=== PATIENT | female | born 1975 | race Caucasian/White ===

== ENCOUNTER 2016-11-01 22:39 | Emergency (ER) | payer OTHER ==
[~2016-11-01 22:39] MED LIST: ROCURONIUM BROMIDE INJ 50 MG/5 ML VIAL IV ONE
[2016-11-01] MEDS ORDERED: ETOMIDATE INJ/PF 20 MG/10 ML SDV IV ONE (22:51)
[2016-11-01] MEDS ORDERED: PROPOFOL 100 ML IV ONE (22:52)
[2016-11-01] MEDS ORDERED: NORMAL SALINE 1000 ML 1,000 ML IV ONE ×2 (23:00→23:25)
[2016-11-01 23:06] LABS: ABSOLUTE BASOPHILS # (AUTO) 0.1 10^3/uL (0.0-0.2); ABSOLUTE EOSINOPHILS # (AUTO) 0.2 10^3/uL (0.0-0.6); ABSOLUTE LYMPHOCYTES (AUTO) 4.3 10^3/uL (0.5-4.7); ABSOLUTE MONOCYTES (AUTO) 0.7 10^3/uL (0.1-1.4); ABSOLUTE NEUT (AUTO) 9.3 10^3/uL (1.7-8.2); BASOPHILS % (AUTO) 0.4 % (0-2); EOSINOPHILS % (AUTO) 1.4 % (0-6); HEMATOCRIT 40.3 % (36.0-47.0); HEMOGLOBIN 13.8 g/dL (12.0-15.5); HGB HCT DIFFERENCE 1.1; LYMPHOCYTES % (AUTO) 29.9 % (13-45); MEAN CORPUSCULAR HEMOGLOBIN 30.8 pg (27.0-33.4); MEAN CORPUSCULAR HGB CONC 34.2 g/dL (32.0-36.0); MEAN CORPUSCULAR VOLUME 90 fl (80-97); MONOCYTES % (AUTO) 4.5 % (3-13); RED BLOOD COUNT 4.48 10^6/uL (3.72-5.28); RED CELL DISTRIBUTION WIDTH 12.8 % (11.5-14.0); SEGMENTED NEUTROPHILS % (AUTO) 63.8 % (42-78); WHITE BLOOD COUNT 14.5 10^3/uL (4.0-10.5)
--- NOTE | 2016-11-01 23:07 | ER Document Report ---
ED General - General Chief Complaint: Cardiac Arrest Stated Complaint: POST ARREST Mode of Arrival: Medic Information source: Emergency Med Personnel Notes: This is a 41-year-old female who presents via EMS postarrest. History is all per EMS. EMS was called out for unresponsive patient. Reportedly the patient was found unresponsive by her family. On EMS arrival she was apneic and pulseless. She was found to be in V. fib. She was shocked once with an AED and twice by EMS. This resulted in return of spontaneous circulation. The patient also responded well to 3 doses of Narcan. On arrival to the emergency department she is noted to be moaning, eyes open, no purposeful movements and some rigidity and shaking of extremities concerning for possible seizure. She is noted to have a gag reflex initially, and pupils are equal 2mm and sluggishly responsive to light bilaterally. TRAVEL OUTSIDE OF THE [place] IN LAST 30 DAYS: No - Related Data Allergies/Adverse Reactions: No Known Allergies Allergy (Verified 11/02/16 01:17) Past Medical History - General Information source: Relative Cannot obtain history due to: Intubated - Social History Smoking Status: Unknown if Ever Smoked Family History: Reviewed & Not Pertinent - Past Medical History Cardiac Medical History: Denies: Hx Coronary Artery Disease, Hx Heart Attack, Hx Hypertension Pulmonary Medical History: Denies: Hx Asthma, Hx Bronchitis, Hx COPD, Hx Pneumonia Neurological Medical History: Reports: Hx Migraine. Denies: Hx Cerebrovascular Accident, Hx Seizures Musculoskeltal Medical History: Reports Hx Arthritis - mild Past Surgical History: Reports: Hx Tonsillectomy - Immunizations Hx Diphtheria, Pertussis, Tetanus Vaccination: No Review of Systems - Review of Systems -: Yes ROS unobtainable due to patient's medical condition Physical Exam - Vital signs Vitals: BP 82/52 L 11/01/16 22:40 - General General appearance: Other - eyes open, moaning respirations, no purposeful movements, not following commands - HEENT Head: Normocephalic, Atraumatic Conjunctiva: Normal - Respiratory Breath sounds: Normal. No: Rales, Rhonchi, Wheezing - Cardiovascular Rhythm: Regular, Tachycardia Heart sounds: S1 appreciated, S2 appreciated Murmur: No - Abdominal Inspection: Normal Distension: No distension Bowel sounds: Normal Organomegaly: No organomegaly - Neurological Notes: opens eyes more to sternal rub, but pt does not follow any commands. Extremities clenched and pt appears to be shivering. No obvious seizure activity at this time - Skin Skin Temperature: Cool Skin Moisture: Dry Skin Color: Pale Course - Re-evaluation Re-evalutation: 11/01/16 23:11 Secondary to concerns of airway protection, decision made to RSI and pt intubated with 7.5 ETT with Etomidate and Rocuronium, placed on Propofol drip. Family denies prior history of seizure disorder. Uncertain drug use or narcotic use. Pt critically ill and will be sent to CT now that airway secure. 11/01/16 23:40 Discussed with ICU military technology specialist at [facility] Dr. Skinner who accepts pt in transfer. Transfer center to be whether check at this time for air transport. Dr. Skinner recommends to start cooling pt with ice packs to axilla and groin. Still awaiting head CT. 11/02/16 00:08 Further history obtained from , who states patient has no cardiac history. She has a history of RA. She does take flexeril. He is not aware of narcotics or drug use. Reportedly she complained to family this evening of not feeling well and had "heartburn". She took a shower, felt a little better, but shortly after was found unresponsive in her house. Bystander CPR initiated. Rescue squad initiated AED with one shock,, then EMS states Vfib on their arrival and 2 more shocks given with ROSC. Pateint also given 4mg Narcan with increase in her respiratory drive. This was all prior to ER arrival. Air transport not available secondary to weather. Ground ALS crew to be here within the hour 11/02/16 01:27 Transport crew here for transport. Patient has remained hemodynamically stable on the vent, sedated with propofol, with some purposeful movements noted. She is stable for transport. - Vital Signs Vital signs: Temp Pulse Resp BP Pulse Ox 96.2 F L 17 105/73 100 11/02/16 01:01 11/02/16 01:01 11/02/16 01:01 11/02/16 01:01 - Laboratory Result Diagrams: 11/01/16 22:43 11/01/16 22:43 Laboratory results interpreted by me: 11/01/16 11/01/16 11/01/16 22:43 22:43 22:43 WBC 14.5 H Absolute Neutrophils 9.3 H VBG pH VBG HCO3 Carbon Dioxide 17 L Creatinine 1.39 H Est GFR ( Amer) 50 L Est GFR (Non-Af Amer) 42 L Glucose 242 H AST 379 H ALT 529 H Creatine Kinase 166 H CK-MB (CK-2) 4.78 H Total Protein 5.7 L Urine Protein Urine Glucose (UA) Urine Ketones Urine Blood 11/01/16 11/02/16 22:43 00:16 WBC Absolute Neutrophils VBG pH 7.27 L VBG HCO3 16.7 L Carbon Dioxide Creatinine Est GFR ( Amer) Est GFR (Non-Af Amer) Glucose AST ALT Creatine Kinase CK-MB (CK-2) Total Protein Urine Protein 30 H Urine Glucose (UA) 150 H Urine Ketones TRACE H Urine Blood MODERATE H - Diagnostic Test Radiology reviewed: Reports reviewed - CXR: ETT at thoracic inlet, no obvious infiltrate CT Head: no acute process - EKG Interpretation by Me Additional EKG results interpreted by me: 11/02/16 00:30 EKG at 2250 demonstrates sinus tachycardia with a rate of 1:30. See no obvious ST elevation or depression. There is a wandering baseline. EKG at 2258 and initial sinus tachycardia with a rate of [address] elevation or depression. There is some nonspecific T-wave changes. Procedures - Intubation Orotracheal Airway evaluation: Normal anatomy Medications: Etomidate, Other - rocuronium Intubation method: Orotracheal Blade type: Emmanuel Blade size: 4 ETT size: 7.5 ETT secured at: Lips - 21 ETT secured at (cm): 21 Breath Sounds after Intubation: Equal End tidal CO2 confirmed: Yes Post Intubation Xray: Yes Intubation Complications: No complications Critical Care Note - Critical Care Note Total time excluding time spent on procedures (mins): 50 - minutes of critical care time spent in direct contact evaluating and reevaluating the patient, treating symptoms, reviewing labs and studies and speaking with family and consultants excluding any procedures Discharge - Discharge Clinical Impression: Cardiac arrest, Signs of return of spontaneous circulation, Elevated liver enzymes Condition: Critical Disposition: [facility]
[2016-11-01 23:09] LABS: PROTHROMBIN TIME 14.4 SEC (11.4-15.4)
[2016-11-01 23:10] LABS: PARTIAL THROMBOPLASTIN TIME 30.8 SEC (23.5-35.8)
[2016-11-01 23:17] LABS: ALANINE AMINOTRANSFERASE 529 U/L (9-52); ALBUMIN 3.6 g/dL (3.5-5.0); ALKALINE PHOSPHATASE 58 U/L (38-126); ANION GAP 18 (5-19); ASPARTATE AMINO TRANSFERASE 379 U/L (14-36); BILIRUBIN,DIRECT 0.3 mg/dL (0.0-0.4); BILIRUBIN,TOTAL 0.4 mg/dL (0.2-1.3); BLOOD UREA NITROGEN 13 mg/dL (7-20); CALCIUM 8.8 mg/dL (8.4-10.2); CARBON DIOXIDE 17 mmol/L (22-30); CHLORIDE 105 mmol/L (98-107); CREATINE KINASE 166 U/L (30-135); CREATININE RESULT 1.39 mg/dL (0.52-1.25); GLUCOSE 242 mg/dL (75-110); POTASSIUM 3.7 mmol/L (3.6-5.0); SODIUM 139.9 mmol/L (137-145); TOTAL PROTEIN 5.7 g/dL (6.3-8.2)
[2016-11-01 23:22] LABS: ALCOHOL < 10 mg/dL (NONE DETECTED)
[2016-11-01 23:28] LABS: CREATINE KINASE MB 4.78 ng/mL (<4.55)
[2016-11-01 23:33] LABS: TROPONIN I 0.053 ng/mL
[2016-11-01 23:34] LABS: VENOUS BLOOD BASE EXCESS -9.3 mmol/L; VENOUS BLOOD HCO3 16.7 mmol/L (20-32); VENOUS BLOOD PCO2 36.9 mmHg (35-63); VENOUS BLOOD PH 7.27 (7.30-7.42)
[2016-11-01] MEDS ORDERED: MIDAZOLAM 2 MG/2 ML INJ ONE (23:55)
[2016-11-02 00:30] LABS: APPEARANCE,URINE CLEAR; BILIRUBIN,URINE NEGATIVE (NEGATIVE); GLUCOSE, URINE 150 mg/dL (NEGATIVE); KETONES,URINE TRACE mg/dL (NEGATIVE); LEUKOCYTE ESTERASE,URINE NEGATIVE (NEGATIVE); NITRITE,URINE NEGATIVE (NEGATIVE); PROTEIN,URINE 30 mg/dL (NEGATIVE); URINE SPECIFIC GRAVITY 1.009; UROBILINOGEN,URINE NEGATIVE mg/dL (<2.0)
[2016-11-02 00:42] LABS: URINE BARBITURATES SCREEN NEGATIVE; URINE METHADONE SCREEN NEGATIVE; URINE OPIATES LOW NEGATIVE; URINE PHENCYCLIDINE SCREEN NEGATIVE
[2016-11-02] MEDS ORDERED: ASPIRIN 300 MG SUPP, RECTAL PR ONE (00:44)
[2016-11-02] MEDS ORDERED: ENOXAPARIN SODIUM INJ 80 MG/0.8 ML DISP.SYRIN SUBCUT SCH (00:45)
[2016-11-02 01:03] VITALS: BP 105/73
[2016-11-02] MEDS ORDERED: PROPOFOL 100 ML IV ONE (01:14)
[2016-11-02] MEDS ORDERED: ENOXAPARIN SODIUM INJ 80 MG/0.8 ML DISP.SYRIN SUBCUT ONE (01:30)
--- NOTE | 2016-11-02 08:14 | EKG REPORT ---
SEVERITY:- ABNORMAL ECG - SINUS TACHYCARDIA BORDERLINE INFERIOR Q WAVES NONSPECIFIC REPOL ABNORMALITY, DIFFUSE LEADS : Confirmed by: Jaxson Coffey MD 02-Nov-2016 08:13:51
--- NOTE | 2016-11-02 08:15 | EKG REPORT ---
SEVERITY:- ABNORMAL ECG - SINUS TACHYCARDIA LATERAL INFARCT, AGE INDETERMINATE BORDERLINE PROLONGED QT INTERVAL : Confirmed by: Jaxson Coffey MD 02-Nov-2016 08:14:53
--- NOTE | 2016-11-02 08:15 | EKG REPORT ---
SEVERITY:- ABNORMAL ECG - SINUS TACHYCARDIA CONSIDER ANTEROLATERAL INFARCT BORDERLINE T ABNORMALITIES, LATERAL LEADS : Confirmed by: Jaxson Coffey MD 02-Nov-2016 08:15:04
--- NOTE | 2016-11-02 08:15 | EKG REPORT ---
SEVERITY:- ABNORMAL ECG - ABNORMAL T, CONSIDER ISCHEMIA, LATERAL LEADS PROLONGED QT INTERVAL SINUS RHYTHM : Confirmed by: Jaxson Coffey MD 02-Nov-2016 08:14:32
--- NOTE | 2016-11-02 08:17 | EKG REPORT ---
SEVERITY:- DEFECTIVE ECG - SEVERE BASELINE DISTORTION, DEFECTIVE EKG, NO INTERPRETATION : Confirmed by: Jaxson Coffey MD 02-Nov-2016 08:16:19
== END 2016-11-02 01:25 | disposition short-term general hospital (02) ==
LOC: ER 22:39
PROC: 0BH17EZ Insertion of Endotracheal Airway into Trachea, Via Natural or Artificial Opening (ICD-10-PCS; principal; 2016-11-01)
DX: I46.9 Cardiac arrest, cause unspecified (principal); R74.8 Abnormal levels of other serum enzymes
CPT/HCPCS: 31500; 93005 ×2; 99291; 96372; 96360; 51702; 36415; 82553; 80307 ×2; 82550; 83735; 85025; 85610; 85730; 81025; 80053; 81001; 84484; 82803; 71010; 70450; 93010 ×2; J2250; J3490 ×3; J2704; J7030; J1650

== ENCOUNTER 2016-12-24 15:54 | Emergency (ER) | payer OTHER ==
[2016-12-24] MEDS ORDERED: ASPIRIN 81 MG TABLET, CHEWABLE PO ONE (16:48)
--- NOTE | 2016-12-24 17:08 | RADIOLOGY REPORT (SQ) ---
EXAM DESCRIPTION: CHEST SINGLE VIEW COMPLETED DATE/TIME: 12/24/2016 4:56 pm REASON FOR STUDY: bed 13 cp COMPARISON: 04/27/2016 EXAM PARAMETERS: NUMBER OF VIEWS: One view. TECHNIQUE: Single frontal radiographic view of the chest acquired. RADIATION DOSE: NA LIMITATIONS: None. FINDINGS: LUNGS AND PLEURA: No opacities, masses or pneumothorax. No pleural effusion. MEDIASTINUM AND HILAR STRUCTURES: No masses. Contour normal. HEART AND VASCULAR STRUCTURES: Heart normal in size. Normal vasculature. BONES: No acute findings. HARDWARE: None in the chest. OTHER: No other significant finding. IMPRESSION: NO ACUTE RADIOGRAPHIC FINDING IN THE CHEST. TECHNICAL DOCUMENTATION: JOB ID: [id number]
[2016-12-24 17:44] LABS: ABSOLUTE BASOPHILS # (AUTO) 0.1 10^3/uL (0.0-0.2); ABSOLUTE EOSINOPHILS # (AUTO) 0.2 10^3/uL (0.0-0.6); ABSOLUTE LYMPHOCYTES (AUTO) 1.6 10^3/uL (0.5-4.7); ABSOLUTE MONOCYTES (AUTO) 0.4 10^3/uL (0.1-1.4); ABSOLUTE NEUT (AUTO) 4.8 10^3/uL (1.7-8.2); EOSINOPHILS % (AUTO) 2.3 % (0-6); HEMATOCRIT 40.8 % (36.0-47.0); HEMOGLOBIN 13.7 g/dL (12.0-15.5); HGB HCT DIFFERENCE 0.3; LYMPHOCYTES % (AUTO) 22.8 % (13-45); MEAN CORPUSCULAR HEMOGLOBIN 30.6 pg (27.0-33.4); MEAN CORPUSCULAR HGB CONC 33.6 g/dL (32.0-36.0); MEAN CORPUSCULAR VOLUME 91 fl (80-97); MONOCYTES % (AUTO) 5.3 % (3-13); RED BLOOD COUNT 4.48 10^6/uL (3.72-5.28); RED CELL DISTRIBUTION WIDTH 13.2 % (11.5-14.0); SEGMENTED NEUTROPHILS % (AUTO) 68.6 % (42-78); WHITE BLOOD COUNT 7.1 10^3/uL (4.0-10.5)
[2016-12-24 18:12] LABS: ALANINE AMINOTRANSFERASE 28 U/L (9-52); ALBUMIN 4.2 g/dL (3.5-5.0); ALKALINE PHOSPHATASE 80 U/L (38-126); ANION GAP 12 (5-19); ASPARTATE AMINO TRANSFERASE 35 U/L (14-36); BILIRUBIN,DIRECT 0.3 mg/dL (0.0-0.4); BILIRUBIN,TOTAL 0.5 mg/dL (0.2-1.3); BLOOD UREA NITROGEN 8 mg/dL (7-20); CALCIUM 9.7 mg/dL (8.4-10.2); CARBON DIOXIDE 24 mmol/L (22-30); CHLORIDE 106 mmol/L (98-107); CREATINE KINASE 33 U/L (30-135); CREATININE RESULT 0.69 mg/dL (0.52-1.25); GLUCOSE 87 mg/dL (75-110); POTASSIUM 3.7 mmol/L (3.6-5.0)
[2016-12-24 18:22] LABS: CREATINE KINASE MB 0.22 ng/mL (<4.55)
--- NOTE | 2016-12-24 18:25 | ER Document Report ---
ED Cardiac - General Mode of Arrival: Ambulatory Information source: Patient TRAVEL OUTSIDE OF THE [place] IN LAST 30 DAYS: No - HPI Patient complains to provider of: Chest pain, Shortness of breath Chest pain radiation location: Left arm, Left shoulder, Right arm, Right shoulder Associated symptoms: Other - see notes above <AMARI POLK - Last Filed: 12/24/16 22:53> <SU VALADEZ - Last Filed: 12/24/16 23:31> - General Chief Complaint: Chest Pain Stated Complaint: CHEST PAIN Time Seen by Provider: 12/24/16 17:01 Notes: 41-year-old female with history of sudden cardiac arrest and a negative heart catheterization in October 2016 presents to the ED complaining of chest pain started at 0630 this morning. Patient reports that she has a defibrillator ( [employer] ICD) which transmits information to vitamins. During the onset of the pain patient was transmitting information from a defibrillator. Patient reports that her pain worsened after transmission, but did not transmit any more information. Patient reports that her pain started in her chest and radiated to her arms and shoulders. She also began experiencing nausea and shortness of breath. Patient is currently on aspirin, Lisinopril, Lipitor, and Lopressor. (AMARI POLK) - Related Data Allergies/Adverse Reactions: No Known Allergies Allergy (Verified 12/24/16 16:23) Past Medical History - General Information source: Patient - Social History Smoking Status: Never Smoker Chew tobacco use (# tins/day): Yes Frequency of alcohol use: None Drug Abuse: None Family History: Reviewed & Not Pertinent Patient has suicidal ideation: No Patient has homicidal ideation: No Neurological Medical History: Reports: Hx Migraine Musculoskeltal Medical History: Reports Hx Arthritis - mild Past Surgical History: Reports: Hx Hysterectomy, Hx Orthopedic Surgery - ankle, Hx Tonsillectomy - Immunizations Hx Diphtheria, Pertussis, Tetanus Vaccination: No <AMARI POLK - Last Filed: 12/24/16 22:53> Review of Systems - Review of Systems Constitutional: No symptoms reported EENT: No symptoms reported Cardiovascular: See HPI, Chest pain - Which radiates to the bilateral arms and shoulders Respiratory: See HPI, Short of breath Gastrointestinal: See HPI, Nausea Genitourinary: No symptoms reported Female Genitourinary: No symptoms reported Musculoskeletal: No symptoms reported Skin: No symptoms reported Hematologic/Lymphatic: No symptoms reported Neurological/Psychological: No symptoms reported -: Yes All other systems reviewed and negative <AMARI POLK - Last Filed: 12/24/16 22:53> Physical Exam - Vital signs Interpretation: Normal - General General appearance: Appears well, Alert - HEENT Head: Normocephalic, Atraumatic Eyes: Normal Pupils: PERRL - Respiratory Respiratory status: No respiratory distress Chest status: Nontender Breath sounds: Normal Chest palpation: Normal - Cardiovascular Rhythm: Regular Heart sounds: Normal auscultation Murmur: No - Abdominal Inspection: Normal Distension: No distension Bowel sounds: Normal Tenderness: Nontender Organomegaly: No organomegaly - Back Back: Normal, Nontender - Extremities General upper extremity: Normal inspection, Nontender, Normal color, Normal ROM , Normal temperature General lower extremity: Normal inspection, Nontender, Normal color, Normal ROM , Normal temperature, Normal weight bearing. No: Val's sign - Neurological Neuro grossly intact: Yes Cognition: Normal Orientation: AAOx4 [place] Coma Scale Eye Opening: Spontaneous [place] Coma Scale Verbal: Oriented Cristofer Coma Scale Motor: Obeys Commands [place] Coma Scale Total: 15 Speech: Normal Motor strength normal: LUE, RUE, LLE, RLE Sensory: Normal - Psychological Associated symptoms: Normal affect, Normal mood - Skin Skin Temperature: Warm Skin Moisture: Dry Skin Color: Normal <SU VALADEZ - Last Filed: 12/24/16 23:31> - Vital signs Vitals: Temp Pulse Resp BP Pulse Ox 98.3 F 71 20 128/78 H 100 12/24/16 16:22 12/24/16 16:22 12/24/16 16:22 12/24/16 16:22 12/24/16 16:22 Course - Laboratory Result Diagrams: 12/24/16 17:30 12/24/16 17:30 - Consults Dr. Hinton Time consulted: 19:43 <AMARI POLK - Last Filed: 12/24/16 22:53> - Laboratory Result Diagrams: 12/24/16 17:30 12/24/16 17:30 - Diagnostic Test Radiology reviewed: Reports reviewed - EKG Interpretation by [facility] EKG shows normal: Sinus rhythm Rate: Normal Rhythm: NSR <SU VALADEZ Last Filed: 12/24/16 23:31> - Re-evaluation Re-evalutation: 12/24/16 20:27 Patient is a 41-year-old female who comes in complaining of chest pain. Patient has a history of cardiac arrest in October with AICD placement. Patient with normal blood work and negative troponin. Discussed with cardiology [place]. Patient had a clean cath in October. No evidence for coronary artery disease. Discussed with [employer] [facility] who states that the patient did not have syncope or firing of defibrillator, there would be nothing to interrogate at this time. Patient denies any symptoms. 12/24/16 23:30 Patient is feeling much better at this time. No further chest pain. Troponin negative 2. No acute findings on EKG. Patient does have a very low TSH. She is instructed to follow-up with her doctor regarding this hyperthyroidism which is apparently new. Otherwise stable for discharge. (SU VALADEZ) - Vital Signs Vital signs: Temp Pulse Resp BP Pulse Ox 98.2 F 70 17 104/57 L 100 12/24/16 23:23 12/24/16 23:23 12/24/16 19:01 12/24/16 23:23 12/24/16 23:23 - Laboratory Laboratory results interpreted by me: 12/24/16 17:30 TSH 0.03 L - Consults Dr. Hinton Reason for consultation: 12/24/16 19:43 Patient was discussed with Dr. Hinton and states that the patient had a clean catherization in October 2016. (AMARI POLK) Discharge <AMARI POLK - Last Filed: 12/24/16 22:53> <SU VALADEZ - Last Filed: 12/24/16 23:31> - Discharge Clinical Impression: Atypical chest pain, Hyperthyroidism Condition: Stable Disposition: HOME, SELF-CARE Instructions: Chest Pain of Unclear Cause ([facility]), Hyperthyroidism ([facility]) Additional Instructions: Please follow-up with your doctor regarding your chest pain. Referrals: HORACIO SETH MD [Primary Care Provider] - Follow up as needed Scribe Attestation: 12/24/16 23:31 I personally performed the services described in the documentation, reviewed and edited the documentation which was dictated to the scribe in my presence, and it accurately records my words and actions. (SU VALADEZ) Scribe Documentation - Scribe Written by Tiesha:: Tiesha Caruso, [id number] acting as scribe for :: Radha <AMARI POLK - Last Filed: 12/24/16 22:53>
[2016-12-24 18:26] LABS: TROPONIN I < 0.012 ng/mL
--- NOTE | 2016-12-24 18:55 | EKG REPORT ---
SEVERITY:- ABNORMAL ECG - SINUS RHYTHM NONSPECIFIC T ABNORMALITIES, DIFFUSE LEADS : Confirmed by: Sujata Garcia 24-Dec-2016 18:55:04
[2016-12-24 23:28] VITALS: BP 104/57
== END 2016-12-24 23:29 | disposition home or self-care (01) ==
LOC: ER 15:54
DX: R07.89 Other chest pain (principal); E05.90 Thyrotoxicosis, unspecified without thyrotoxic crisis or storm; R06.02 Shortness of breath; R11.0 Nausea; Z86.74 Personal history of sudden cardiac arrest; Z95.810 Presence of automatic (implantable) cardiac defibrillator; Z79.82 Long term (current) use of aspirin; Z79.899 Other long term (current) drug therapy; Z88.8 Allergy status to other drugs, medicaments and biological substances; Z76.0 Encounter for issue of repeat prescription
CPT/HCPCS: 36415; 71010; 80053; 82550; 82553; 84443; 84484; 85025; 85379; 93005; 93010; 99285

== ENCOUNTER → 2017-02-21 | Outpatient (CLI) | payer OTHER ==
--- NOTE | 2017-02-21 13:38 | WOMENS IMAGING REPORT ---
EXAM DESCRIPTION: U/S THYROID/ST TIS HEAD NECK COMPLETED DATE/TIME: 02/21/2017 8:17 am REASON FOR STUDY: THYROTOXICOSIS E05.90 THYROTOXICOSIS, UNSP WITHOUT THYROTOXIC CRISIS OR STO COMPARISON: None. TECHNIQUE: Dynamic and static balderas-scale images acquired of the thyroid gland. Selected additional c olor/power Doppler images recorded. All images stored to PACS. LIMITATIONS: None. FINDINGS: Thyroid gland is normal size but diffusely increased in echogenicity, with increased color flow, question thyroiditis. Right lobe 5.2 x 2.1 x 2 cm in size, left lobe 5.7 x 1.9 x 1.8 cm in size. Isthmus 5 mm in thickness . No focal thyroid nodules or cysts. IMPRESSION: Increased echogenicity and color flow diffusely throughout the thyroid gland, question t hyroiditis. No focal cysts or masses. TECHNICAL DOCUMENTATION: JOB ID: [id number] [employer]- All Rights Reserved
== END ==
LOC: WI 07:43
PROVIDERS: ATTEND Nurse Practitioner
DX: E05.90 Thyrotoxicosis, unspecified without thyrotoxic crisis or storm (principal)
CPT/HCPCS: 76536

== ENCOUNTER 2017-07-10 10:51 | Emergency (ER) | payer OTHER ==
[2017-07-10] MEDS ORDERED: CYCLOBENZAPRINE HCL 10 MG TABLET PO ONE (11:31)
[2017-07-10] MEDS ORDERED: NAPROXEN 250 MG TABLET PO ONE (11:31)
[2017-07-10] MEDS ORDERED: OXYCODONE-ACETAMINOPHEN 5-325 MG TABLET PO ONE (11:31)
--- NOTE | 2017-07-10 11:35 | ER Document Report ---
ED General - General Chief Complaint: Jaw Pain Stated Complaint: RIGHT SIDE PAIN Time Seen by Provider: 07/10/17 11:19 Mode of Arrival: Ambulatory Information source: Patient, [facility] Records Notes: This 42-year-old female patient reports waking up this morning with severe pain in her right scapular back region, and now feeling some pain in the left neck and jaw. The pain is made worse with movement. She does not recall any heavy lifting straining or other incident in the last week or so that could have precipitated this. Her history is significant for a sudden arrhythmia 11/01/2016 where she was resuscitated in the field. She subsequently went to [facility] where a cardiac catheterization was normal and an ICD was placed. She was seen again on 12/24/2016 with chest pain, but the workup was negative other than a low TSH and nothing ever came of that visit. She has a history of thyroiditis with hyperthyroidism. She reports her last thyroid function testing in March was normal. She reports she did take a Zanaflex once in the last 1-2 weeks. TRAVEL OUTSIDE OF THE [place] IN LAST 30 DAYS: No - Related Data Allergies/Adverse Reactions: No Known Allergies Allergy (Verified 07/10/17 10:55) Past Medical History - General Information source: Patient, [facility] Records - Social History Smoking Status: Never Smoker Cigarette use (# per day): No Chew tobacco use (# tins/day): No Smoking Education Provided: No Frequency of alcohol use: None Drug Abuse: None Occupation: Property management for a [employer] Lives with: Family Family History: Reviewed & Not Pertinent Patient has suicidal ideation: No Patient has homicidal ideation: No - Past Medical History Cardiac Medical History: Reports: Other - Sudden or arrhythmia on November 01, 2016 Denies: Hx Coronary Artery Disease Pulmonary Medical History: Reports: None EENT Medical History: Reports: None Neurological Medical History: Reports: Hx Migraine Endocrine Medical History: Reports: Hx Hyperthyroidism, Other - Thyroiditis Renal/ Medical History: Reports: None GI Medical History: Reports: None Musculoskeltal Medical History: Reports Hx Arthritis - mild Skin Medical History: Reports None Psychiatric Medical History: Reports: None Past Surgical History: Reports: Hx Hysterectomy, Hx Orthopedic Surgery - ankle, Hx Tonsillectomy - Immunizations Hx Diphtheria, Pertussis, Tetanus Vaccination: No Review of Systems - Review of Systems Constitutional: No symptoms reported EENT: No symptoms reported Cardiovascular: No symptoms reported Respiratory: No symptoms reported Gastrointestinal: No symptoms reported Genitourinary: No symptoms reported Female Genitourinary: No symptoms reported, Last menstrual period - Hysterectomy in 2014 Musculoskeletal: See HPI Skin: No symptoms reported Hematologic/Lymphatic: No symptoms reported Neurological/Psychological: No symptoms reported Physical Exam - Vital signs Vitals: Temp Pulse Resp BP Pulse Ox 98.7 F 66 18 119/58 L 100 07/10/17 11:07 07/10/17 11:07 07/10/17 11:07 07/10/17 11:07 07/10/17 11:07 Interpretation: Normal - General General appearance: Appears well, Alert In distress: Mild - Patient tends to sit holding her head, upper chest and back still due to pain with movement. - HEENT Head: Normocephalic, Atraumatic Eyes: Normal Pupils: PERRL Neck: Supple, Other - Very tender to palpate the left posterior cervical muscles going up toward the jaw and down toward the shoulder through the trapezius muscle. - Respiratory Respiratory status: No respiratory distress Breath sounds: Normal - Cardiovascular Rhythm: Regular Heart sounds: Normal auscultation Murmur: No - Abdominal Inspection: Normal - Back Back: Tender - Tenderness to the right scapular muscles. Tenderness to the left trapezius muscles. - Extremities General upper extremity: Other - The right medial and inferior scapular muscle regions are very tender to palpate. There is tenderness in rotating the scapula and lifting and using the right arm and shoulder. General lower extremity: Normal inspection - Neurological Neuro grossly intact: Yes - Psychological Associated symptoms: Normal affect, Normal mood - Skin Skin Temperature: Warm Skin Moisture: Dry Skin Color: Normal Course - Re-evaluation Re-evalutation: 07/10/17 13:03 Lab work is unremarkable and copies of lab work were provided to the patient to give to her primary care provider - Vital Signs Vital signs: Temp Pulse Resp BP Pulse Ox 98.7 F 66 18 119/58 L 100 07/10/17 11:07 07/10/17 11:07 07/10/17 11:07 07/10/17 11:07 07/10/17 11:07 - Laboratory Result Diagrams: 07/10/17 11:40 07/10/17 11:40 Laboratory results interpreted by me: 07/10/17 11:40 Calcium 10.4 H Discharge - Discharge Clinical Impression: Muscle strain of right scapular region Qualifiers: Encounter type: initial encounter Qualified Code(s): S46.911A - Strain of unspecified muscle, fascia and tendon at shoulder and upper arm level, right arm , initial encounter Strain of left trapezius muscle Qualifiers: Encounter type: initial encounter Qualified Code(s): S46.812A - Strain of other muscles, fascia and tendons at shoulder and upper arm level, left arm, initial encounter Condition: Stable Disposition: HOME, SELF-CARE Additional Instructions: Muscle Strain: You have strained the right scapular muscles and left trapezius muscles. This often occurs with strenuous exertion, or during an injury that suddenly stretches the muscle. You often will not feel the straining of the muscles at the time they occur, but will develope pain several days later. The seriousness of a strain varies. Some strains heal within days, others cause problems for months. X-rays cannot show a muscle strain. X-rays are taken only if symptoms suggest that a fracture could be present. The usual treatment of an older muscle strain is rest and moist heat. Sometimes, a sling or soft collar may be necessary to rest the muscle. The muscle can be used again once pain subsides. Severe strains require a special exercise and stretching program to prevent permanent stiffness and disability. Your doctor will advise you if this will be necessary. Call the doctor immediately if pain or swelling becomes severe, or if numbness or discoloration develop. //////////////////////////////////////////////////////////////////////////////// //////////////////////////////////////////////////////////////////////////////// //////////////// Take medications as prescribed. Take Motrin 600 mg every 8 hours or 2 Aleve every 12 hours for anti- inflammatory effect and additional pain relief. Follow-up with your primary care provider if not improving. It may take several days for the involved areas to stop hurting. RETURN TO THE EMERGENCY ROOM IF ANY NEW OR WORSENING SYMPTOMS. Prescriptions: Cyclobenzaprine HCl [Flexeril 5 mg Tablet] 5 mg PO TID PRN #15 tablet PRN Reason: Oxycodone HCl/Acetaminophen [Percocet 5-325 mg Tablet] 1 tab PO ASDIR PRN #15 tablet PRN Reason: Forms: Return to Work
[2017-07-10 12:08] LABS: ABSOLUTE BASOPHILS # (AUTO) 0.1 10^3/uL (0.0-0.2); ABSOLUTE EOSINOPHILS # (AUTO) 0.1 10^3/uL (0.0-0.6); ABSOLUTE LYMPHOCYTES (AUTO) 1.4 10^3/uL (0.5-4.7); ABSOLUTE MONOCYTES (AUTO) 0.4 10^3/uL (0.1-1.4); ABSOLUTE NEUT (AUTO) 4.9 10^3/uL (1.7-8.2); BASOPHILS % (AUTO) 0.9 % (0-2); EOSINOPHILS % (AUTO) 1.5 % (0-6); HEMATOCRIT 42.3 % (36.0-47.0); HEMOGLOBIN 14.6 g/dL (12.0-15.5); LYMPHOCYTES % (AUTO) 20.6 % (13-45); MEAN CORPUSCULAR HEMOGLOBIN 31.6 pg (27.0-33.4); MEAN CORPUSCULAR HGB CONC 34.6 g/dL (32.0-36.0); MEAN CORPUSCULAR VOLUME 92 fl (80-97); MONOCYTES % (AUTO) 5.9 % (3-13); PLATELET COUNT 226 10^3/uL (150-450); RED BLOOD COUNT 4.63 10^6/uL (3.72-5.28); RED CELL DISTRIBUTION WIDTH 13.2 % (11.5-14.0); SEGMENTED NEUTROPHILS % (AUTO) 71.1 % (42-78); TOTAL CELLS COUNTED % (AUTO) 100 %
[2017-07-10 12:21] LABS: ALANINE AMINOTRANSFERASE 24 U/L (9-52); ALBUMIN 4.3 g/dL (3.5-5.0); ALKALINE PHOSPHATASE 64 U/L (38-126); ANION GAP 13 (5-19); ASPARTATE AMINO TRANSFERASE 20 U/L (14-36); BILIRUBIN,DIRECT 0.1 mg/dL (0.0-0.4); BILIRUBIN,TOTAL 0.8 mg/dL (0.2-1.3); BLOOD UREA NITROGEN 10 mg/dL (7-20); CALCIUM 10.4 mg/dL (8.4-10.2); CARBON DIOXIDE 26 mmol/L (22-30); CHLORIDE 106 mmol/L (98-107); CREATINE KINASE 104 U/L (30-135); GLUCOSE 83 mg/dL (75-110); MAGNESIUM 2.1 mg/dL (1.6-2.3); POTASSIUM 3.6 mmol/L (3.6-5.0); SODIUM 144.8 mmol/L (137-145); TOTAL PROTEIN 6.4 g/dL (6.3-8.2)
[2017-07-10 12:36] LABS: FREE T3 4.01 pg/mL (2.77-5.27); FREE T4 (FREE THYROXINE) 1.09 ng/dL (0.78-2.19)
[2017-07-10 12:50] LABS: THYROID STIMULATING HORMONE 0.53 uIU/mL (0.47-4.68)
[2017-07-10 13:22] VITALS: BP 106/63
--- NOTE | 2017-07-10 13:40 | EKG REPORT ---
SEVERITY:- BORDERLINE ECG - SINUS RHYTHM NONSPECIFIC ST-T CHANGES- INFERIOR LEADS : Confirmed by: Jaxson Coffey MD 10-Jul-2017 13:40:21
== END 2017-07-10 13:18 | disposition home or self-care (01) ==
LOC: ER 10:51
DX: S46.911A Strain of unspecified muscle, fascia and tendon at shoulder and upper arm level, right arm, initial encounter (principal); S29.012A Strain of muscle and tendon of back wall of thorax, initial encounter; X58.XXXA Exposure to other specified factors, initial encounter; Z95.810 Presence of automatic (implantable) cardiac defibrillator; Z86.79 Personal history of other diseases of the circulatory system; R68.84 Jaw pain; M54.2 Cervicalgia
CPT/HCPCS: 36415; 80053; 82550; 83735; 84439; 84443; 84481; 84484; 85025; 93005; 93010; 99284

== ENCOUNTER → 2018-08-01 | Outpatient (CLI) | payer OTHER ==
--- NOTE | 2018-08-01 15:32 | RADIOLOGY REPORT (SQ) ---
EXAM DESCRIPTION: RIBS LEFT W/PA CHEST COMPLETED DATE/TIME: 08/01/2018 3:18 pm REASON FOR STUDY: LEFT RIB PAIN R07.81 PLEURODYNIA COMPARISON: 12/24/2016 TECHNIQUE: Frontal view of the chest and additional views of the left ribs acquired. NUMBER OF VIEWS: Four view. LIMITATIONS: None. FINDINGS: FRONTAL CXR: No pneumothorax. No pleural effusion. No atelectasis or infiltrates. RIBS: No displaced rib fractures. No lytic or blastic bony lesions. OTHER: Battery pack and lead are in place overlying the left lateral chest wall. The lead overlies t he midline. IMPRESSION: NO PNEUMOTHORAX. NO DISPLACED RIB FRACTURES. COMMENT: SITE OF TRAUMA/COMPLAINT MARKED/STAMP COMPLETED: YES. TECHNICAL DOCUMENTATION: JOB ID: [id number] [employer]- All Rights Reserved Reading location - IP/workstation name: [email or web address]
== END ==
LOC: OD 14:51
PROVIDERS: ATTEND Nurse Practitioner Family
DX: R07.81 Pleurodynia (principal)

== ENCOUNTER → 2019-05-20 | Outpatient (CLI) | payer OTHER ==
--- NOTE | 2019-05-20 11:23 | RADIOLOGY REPORT (SQ) ---
EXAM DESCRIPTION: CT HEAD WITHOUT COMPLETED DATE/TIME: 05/20/2019 7:46 am REASON FOR STUDY: AMNESIA (R41.3) R41.3 OTHER AMNESIA COMPARISON: 11/02/2016 TECHNIQUE: Axial images acquired through the brain without intravenous contrast. Images reviewed wi th bone, brain and subdural windows. Additional sagittal and coronal reconstructions were generated. Images stored on PACS. All CT scanners at this facility use dose modulation, iterative reconstruction, and/or weight based d osing when appropriate to reduce radiation dose to as low as reasonably achievable (ALARA). [facility]: Dose Right [facility]: CareDose [facility]: Dose Right [facility]: Teradose 4D [facility]: Localmind RADIATION DOSE: CT Rad equipment meets quality standard of care and radiation dose reduction techniq ues were employed. CTDIvol: 48.6 mGy. DLP: 930 mGy-cm. mGy. LIMITATIONS: None. FINDINGS: VENTRICLES: Normal size and contour. CEREBRUM: No masses. No hemorrhage. No midline shift. No evidence for acute infarction. Normal gra y/white matter differentiation. No areas of low density in the white matter. CEREBELLUM: No masses. No hemorrhage. No alteration of density. No evidence for acute infarction. EXTRAAXIAL SPACES: No fluid collections. No masses. ORBITS AND GLOBE: No intra- or extraconal masses. Normal contour of globe without masses. CALVARIUM: No fracture. PARANASAL SINUSES: No fluid or mucosal thickening. SOFT TISSUES: No mass or hematoma. OTHER: No other significant finding. IMPRESSION: NORMAL BRAIN CT WITHOUT CONTRAST. EVIDENCE OF ACUTE STROKE: NO. COMMENT: Quality ID # [id number]: Final reports with documentation of one or more dose reduction techniques (e.g., Automated exposure control, adjustment of the mA and/or kV according to patient size, use of iterative reconstruction technique) TECHNICAL DOCUMENTATION: JOB ID: [id number] [employer]- All Rights Reserved Reading location - IP/workstation name: [email or web address]
== END ==
LOC: RAD 07:26
PROVIDERS: ATTEND Nurse Practitioner Family
DX: R41.3 Other amnesia (principal)
CPT/HCPCS: 70450

== ENCOUNTER → 2019-12-08 | Outpatient (CLI) | payer OTHER ==
--- NOTE | 2019-12-08 14:23 | RADIOLOGY REPORT (SQ) ---
EXAM DESCRIPTION: CHEST PA/LATERAL IMAGES COMPLETED DATE/TIME: 12/08/2019 12:50 pm REASON FOR STUDY: COUGH COMPARISON: None. EXAM PARAMETERS: NUMBER OF VIEWS: two views TECHNIQUE: Digital Frontal and Lateral radiographic views of the chest acquired. RADIATION DOSE: NA LIMITATIONS: none FINDINGS: LUNGS AND PLEURA: No opacities, masses or pneumothorax. No pleural effusion. MEDIASTINUM AND HILAR STRUCTURES: No masses or contour abnormalities. HEART AND VASCULAR STRUCTURES: Heart normal size. No evidence for failure. BONES: No acute findings. HARDWARE: External defibrillator on the left. OTHER: No other significant finding. IMPRESSION: NO SIGNIFICANT RADIOGRAPHIC FINDING IN THE CHEST. TECHNICAL DOCUMENTATION: JOB ID: [id number] [employer]- All Rights Reserved Reading location - IP/workstation name: [email or web address]
== END ==
LOC: RAD 12:29
PROVIDERS: ATTEND Nurse Practitioner Family
DX: R05 Cough (principal)
CPT/HCPCS: 71046